=== PATIENT | female | born 1960 | race Hispanic/Latino ===

== ENCOUNTER 2018-07-03 19:09 | Emergency (ER) | payer OTHER ==
[~2018-07-03] VITALS: Ht 157.5 cm; Wt 77.2 kg
[2018-07-03 20:25] VITALS: BP 182/98
[2018-07-04] MEDS ORDERED: MUPIROCIN21 TOP (17:08)
[2018-07-04] MEDS ORDERED: CEPHALEXIN500 MG PO (17:08)
== END 2018-07-03 20:25 | disposition home or self-care (01) | DRG 605 ==
LOC: ED 19:09
PROC: 0HQGXZZ Repair Left Hand Skin, External Approach (ICD-10-PCS; principal; 2018-07-03)
DX: S61.215A Laceration without foreign body of left ring finger without damage to nail, initial encounter (principal); W26.0XXA Contact with knife, initial encounter; Y93.G3 Activity, cooking and baking; Y92.000 Kitchen of unspecified non-institutional (private) residence as the place of occurrence of the external cause

== ENCOUNTER 2018-07-04 16:12 | Emergency (ER) | payer OTHER ==
[~2018-07-04] VITALS: Ht 157.5 cm; Wt 79.2 kg
[2018-07-04] MEDS ORDERED: CEPHALEXIN500 MG PO (17:08)
[2018-07-04] MEDS ORDERED: MUPIROCIN21 TOP (17:08)
[2018-07-04 17:10] VITALS: BP 147/74
== END 2018-07-04 17:10 | disposition home or self-care (01) | DRG 950 ==
LOC: ED 16:12
DX: S61.215D Laceration without foreign body of left ring finger without damage to nail, subsequent encounter (principal)

== ENCOUNTER 2018-07-11 17:18 | Emergency (ER) | payer OTHER ==
[~2018-07-11] VITALS: Ht 157.5 cm; Wt 80.0 kg
[~2018-07-11 17:18] MED LIST: CEPHALEXIN500 MG PO; MUPIROCIN21 TOP
[2018-07-11 18:06] VITALS: BP 153/74
== END 2018-07-11 18:14 | disposition home or self-care (01) | DRG 950 ==
LOC: ED 17:18
DX: S61.215D Laceration without foreign body of left ring finger without damage to nail, subsequent encounter (principal)